=== PATIENT | male | born 1985 ===

== ENCOUNTER 2020-02-26 08:43 | Outpatient (REF) | payer OTHER, SELFPAY | END 2020-02-26 08:44 | disposition home or self-care (01) | LOC: HO.LAB 08:43 | PROVIDERS: Visit Provider Internal Medicine | DX: Z20.828 Contact with and (suspected) exposure to other viral communicable diseases (principal) | CPT/HCPCS: C9803; U0003 ==

== ENCOUNTER 2020-05-05 16:47 | Outpatient (REF) | payer OTHER, SELFPAY | END 2020-05-05 16:48 | disposition home or self-care (01) | LOC: HO.LAB 16:47 | PROVIDERS: Visit Provider Internal Medicine | DX: Z20.822 Contact with and (suspected) exposure to COVID-19 (principal) | CPT/HCPCS: 36415; C9803; U0003 ==

== ENCOUNTER 2023-01-01 13:19 | Emergency (ER) | payer MEDICAID, SELFPAY ==
--- NOTE | ~2023-01-01 | CT_ITS ---
EXAMINATION: CT ABDOMEN AND PELVIS WITHOUT CONTRAST CLINICAL INFORMATION: Left flank hematuria COMPARISON: None available. TECHNIQUE: Multidetector volumetric imaging was performed from the superior aspect of the liver through the pubic symphysis. Sagittal and coronal reformatted images were obtained on the technologist's workstation. This CT examination was performed using dose optimization techniques as appropriate, variously including the following: *Automated exposure control *Adjustment of mA and/or kV according to patient size (this includes techniques or standardized protocols for targeted exams where dose is matched to indication/reason for exam; i.e. extremities or head) *Use of iterative reconstruction technique DLP: 539 mGy-cm FINDINGS: LUNG BASES: There is scattered calcified granulomas in right lung base with the largest granuloma measuring 7 mm axial image 8/3. Heart size is normal. No pericardial effusion seen. Small right pericardial effusion is seen. LIVER, GALLBLADDER, AND BILIARY TREE: The liver is normal in size, shape, and attenuation. No focal hepatic lesion or biliary ductal dilatation is present. The gallbladder is unremarkable with no evidence of radiopaque gallstones, gallbladder wall thickening, or obvious pericholecystic inflammatory changes. PANCREAS: Unremarkable. SPLEEN: Unremarkable. ADRENAL GLANDS: Unremarkable. KIDNEYS AND URETERS: The kidneys are normal in size, shape, and attenuation. There is 7 mm radiopaque calculi in lower pole calyx right kidney and 4 mm calculi lower pole and several 2 mm radiopaque calculi mid pole left kidney without caliectasis. There is a left sided hydroureteronephrosis from an obstructive 4 mm radiopaque calculi left distal ureter. There is minimal proximal periureteral fat stranding. BLADDER: Unremarkable. GASTROINTESTINAL TRACT: Scattered stool and gas is seen throughout the colon without distention. The small bowel loops are normal caliber. Appendix is normal caliber. No inflammatory process, free air or free fluid. ABDOMINAL WALL: There is a small umbilical hernia containing fat. LYMPH NODES: Normal. VASCULAR: Unremarkable. PELVIC VISCERA: The prostate gland is mildly enlarged. Small shotty lymph nodes are seen in the left inguinal region. OSSEOUS STRUCTURES: No gross lytic or sclerotic process seen CT/CT abdomen pelvis wo IV con IMPRESSION: 4 mm obstructive left distal ureteral calculi with mild hydroureteronephrosis. Bilateral nephrolithiasis. Mild constipation. Calcified granulomas right lung base. Mild prostate enlargement. Fleischner guidelines were followed.
--- NOTE | 2023-01-01 13:36 | ED.ABDPAIN ---
HPI - Abdominal Pain General Chief Complaint: Urogenital-Male Stated Complaint: Blood in urine/L side back pain Time Seen by Provider: 01/01/23 16:38 Source: patient Mode of arrival: ambulatory Limitations: no limitations History of Present Illness HPI narrative: this is a 37-year-old male with no known medical history who presents to the ER with complaints of left flank pain and hematuria starting today. No vomiting, diarrhea, fever, chills, testicular pain, abdominal pain. no concern for STI. Related Data Previous Rx's Medication Instructions Recorded ciprofloxacin HCl 500 mg tablet 500 mg PO BID #14 tabs 01/01/23 ibuprofen 600 mg tablet 600 mg PO Q8H PRN pain #30 tabs 01/01/23 tamsulosin 0.4 mg capsule (Flomax) 0.4 mg PO DAILY #30 caps 01/01/23 Allergies Allergy/AdvReac Type Severity Reaction Status Date / Time No Known Allergies Allergy Verified 01/01/23 13:36 Review of Systems Review of Systems Yes all other systems are reviewed and are negative Constitutional: Reports no additional constitutional complaints, Denies body ache(s), Denies chills, Denies fever(s), Denies headache(s) and Denies weakness Eyes: Reports no additional eye complaints and Denies change in vision Reports system reviewed and no additional complaints, except as documented, Denies dizziness, Denies headache(s), Denies nasal congestion, Denies nasal discharge and Denies neck pain Cardiovascular: Reports no additional cardiovascular complaints, Denies chest pain, Denies leg edema and Denies dyspnea Respiratory: Reports no additional respiratory complaints, Denies cough and Denies dyspnea Gastrointestinal: Reports no additional gastrointestinal complaints, Denies abdominal pain, Denies diarrhea, Denies nausea and Denies vomiting Genitourinary: Reports hematuria, Denies dysuria, Reports flank pain, Denies testicular mass, Denies testicular pain, Denies urinary frequency, Denies urinary hesitancy, Denies urinary incontinence and Denies urinary urgency Musculoskeletal: Reports no additional musculoskeletal complaints, Reports back pain, Denies arthralgias, Denies joint swelling, Denies neck pain, Denies numbness and Denies tingling Skin/Breast: Reports system reviewed and no additional complaints, except as docu and Denies rash Reports system reviewed and no additional complaints, except as documented, Denies Abnormal speech present, Denies dizziness, Denies headache(s), Denies numbness, Denies tingling and Denies weakness [facility] Past Medical History Attestation statement: The following information was validated with the patient. Source: old records reviewed and nursing notes reviewed Social History Social History Advance Directives: No Advance Directives Information Provided: No Physical Exam ED Vital Signs: Vital Signs - 24 hr 01/01/23 13:37 01/01/23 16:52 Temperature 98 F 98.2 F Pulse Rate 73 48 L Respiratory Rate 19 16 Blood Pressure 129/71 141/70 H Pulse Oximetry 98 98 Oxygen Delivery Method Room Air Room Air BMI result Body Mass Index 29.2 Const General: cooperative, healthy appearing, comfortable and no acute distress Orientation/consciousness: patient oriented x3 Limitations: no limitations HENMT Head: Yes normal to inspection Ears: hearing grossly normal bilaterally General nose exam: Normal external nose present Face and sinus: Yes normal facial exam Mouth: Normal oral and palatal mucosa present Throat: Yes posterior oropharynx normal Eyes General: appearance normal, both eyes and all related structures Pupils: Equal, round and reactive pupils present Neck Neck: Yes normal visual inspection Chest Chest palpation & inspection: normal inspection of the chest Resp Effort & Inspection: normal respiratory effort Auscultation: clear to auscultation bilaterally Cardio Rate: regular rate Rhythm: regular rhythm Peripheral pulses: Peripheral pulses 2+ throughout GI Inspection: Yes normal to inspection Palpation (GI): Soft to palpation and nontender Auscultation: normal bowel sounds General: Yes CVA tenderness (left side) Back/Spine/Pelvis Back: CVA tenderness (left side) Thoracic/Lumbar Spine: thoracic and lumbar spine normal to inspection Skin General skin exam: no rashes or lesions noted Neuro General: patient oriented x3, no focal motor deficits and normal sensation to monofilament Cranial nerves: Yes Equal, round and reactive pupils present Cognition (Neuro): normal cognition Speech: No Abnormal speech present Gait exam (Neuro): Normal gait present Motor exam (neuro): 5/5 motor strength present throughout Extrem General: Yes normal to inspection Course Course Course Narrative: This is an RME: Additional HPI, ROS, PE not included below will be deferred to primary provider. Patient is a 37-year-old male presents emergency department with reports of review of a hematuria and left flank pain upon awakening this morning. He reports a history of kidney stones, but states that this feels different as previously he experienced scrotal pain with it only. Denies dysuria, fevers, chills, nausea, vomiting, diarrhea, constipation. Plan: Labs, urinalysis, CT AP Medical Decision Making Medical Decision Making [facility] Narrative: this is a 37-year-old male with no known medical history who presents to the ER with complaints of left flank pain and hematuria starting today. No vomiting, diarrhea, fever, chills, testicular pain, abdominal pain. no concern for STI. on exam patient has left CVA tenderness. No focal abdominal pain. Patient is quite comfortable resting in the bed. No vomiting, afebrile. Will review labs, UA and CT ordered from triage. Differential Diagnosis Differential Diagnoses: The differential diagnosis associated with the presentation includes Colic, pyelonephritis, UTI low concern for testicular torsion, epididymitis, STI Admission/Observation Consideration of admission/observation: Escalation of care including admission/observation considered No fever, leukocytosis, normal renal function, pain is well controlled with no vomiting. No need for admission for Urology consultation urgently. Lab Data [facility] Lab Attestation statement: I reviewed the patient's lab results. 01/01/23 15:33 01/01/23 15:33 Labs: Lab Results 01/01/23 01/01/23 Range/Units 15:32 15:33 WBC 7.4 (4.8-10.8) X10*3/uL RBC 4.95 (4.60-5.80) X10*6/uL Hgb 14.1 (14.0-18.0) g/dl Hct 42.3 (42.0-52.0) % MCV 85.5 (80.0-98.0) fL MCH 28.5 (27.0-33.0) pg MCHC 33.3 (31.0-36.0) g/dl RDW 13.0 (11.0-16.0) % Plt Count 226 (160-400) X10*3/uL MPV 10.2 (9.4-12.4) fL Immature Gran % (Auto) 0.1 (0.0-0.4) % Neut % (Auto) 51.9 (45-73) % Lymph % (Auto) 34.2 (20-40) % [place] % (Auto) 7.0 (2-11) % Eos % (Auto) 6.3 H (0-4) % Baso % (Auto) 0.5 (0-2) % Lymph # (Auto) 2.5 (1.2-4.9) X10*3/uL [place] # (Auto) 0.5 (0.1-1.2) X10*3/uL Eos # (Auto) 0.5 H (0.0-0.4) X10*3/uL Baso # (Auto) 0.0 (0.0-0.2) X10*3/uL Abs Immat Gran (auto) 0.01 (0.00-0.03) X10*3/uL Absolute Neuts (auto) 3.8 (2.0-8.3) x10*3/uL Absolute Nucleated RBC 0.000 (0.0-0.012) X10*3/uL Nucleated RBC % (auto) 0.0 (0.0-0.2) /100WBC Sodium 140 (135-145) mmol/L Potassium 4.5 (3.3-5.1) mmol/L Chloride 110 H (96-108) mmol/L Carbon Dioxide 25 (22-29) mmol/L Anion Gap 10 L (12-20) BUN 14 (9-16) mg/dL Creatinine 0.95 (0.5-1.4) mg/dL Estim Creat Clear Calc 117.9 Estimated GFR > 60 Random Glucose 96 (60-115) mg/dL Calcium 9.8 (8.4-10.2) mg/dL Total Bilirubin 0.4 (0.0-1.0) mg/dL AST 30 (5-37) U/L ALT 24 (0-40) U/L Alkaline Phosphatase 82 (39-117) U/L Total Protein 7.1 (6.5-8.0) g/dL Albumin 4.1 (3.5-5.0) g/dL Lipase 107 H (8-78) U/L Urine Color Dark Yellow Urine Appearance Cloudy Urine pH 5.5 (5.0-9.0) Ur Specific [place] 1.025 (1.005-1.025) Urine Protein 30 (1+) H (Neg-Trace) mg/dL Urine Glucose (UA) Negative (Negative) mg/dL Urine Ketones Negative (Negative) mg/dL Urine Blood Large (3+) H (Negative) Urine Nitrite Negative (Negative) Ur Leukocyte Esterase Small (1+) H (Negative) Urine RBC >20 H (0-2) /HPF Urine WBC 21-50 H (0-5) /HPF Ur Squamous Epith Cells 0-2 (0-2) /HPF Urine Bacteria None Seen (None Seen) Hyaline Casts 3-5 (0-2) /LPF Independent Interpretation I performed an independent interpretation of an: CT Scan Interpretation: I independently reviewed the CT scan agree with the radiology report Radiology Impression Discussion of test interpretation with radiology: I have reviewed the radiologist's reading. Radiologist Impression: John Lazaro??37??M??1985 ? Allergy/Adv: No Known Allergies Close Abdomen/Pelvis CT (Signed) Adiel Rosanal - 01/01/23 Launch?Image [place] [id number] CT Scan Report Signed Patient: John Lazaro MR#: [id number] : 1985 Acct:[id number] Age/Sex: 37 / M ADM Date: 01/01/23 Loc: HO.ED Attending Dr: Ordering Physician: Ivelisse Ureña CNP Date of Service: 01/01/23 Procedure(s): CT abdomen pelvis wo IV con Accession Number(s): [id number] cc: Ivelisse Ureña CNP; Physician,Unknown ~ EXAMINATION: CT ABDOMEN AND PELVIS WITHOUT CONTRAST CLINICAL INFORMATION: Left flank hematuria COMPARISON: None available. TECHNIQUE: Multidetector volumetric imaging was performed from the superior aspect of the liver through the pubic symphysis. Sagittal and coronal reformatted images were obtained on the technologist's workstation. This CT examination was performed using dose optimization techniques as appropriate, variously including the following: *Automated exposure control *Adjustment of mA and/or kV according to patient size (this includes techniques or standardized protocols for targeted exams where dose is matched to indication/reason for exam; i.e. extremities or head) *Use of iterative reconstruction technique DLP: 539 mGy-cm FINDINGS: LUNG BASES: There is scattered calcified granulomas in right lung base with the largest granuloma measuring 7 mm axial image 8/3. Heart size is normal. No pericardial effusion seen. Small right pericardial effusion is seen. LIVER, GALLBLADDER, AND BILIARY TREE: The liver is normal in size, shape, and attenuation. No focal hepatic lesion or biliary ductal dilatation is present. The gallbladder is unremarkable with no evidence of radiopaque gallstones, gallbladder wall thickening, or obvious pericholecystic inflammatory changes. PANCREAS: Unremarkable. SPLEEN: Unremarkable. ADRENAL GLANDS: Unremarkable. KIDNEYS AND URETERS: The kidneys are normal in size, shape, and attenuation. There is 7 mm radiopaque calculi in lower pole calyx right kidney and 4 mm calculi lower pole and several 2 mm radiopaque calculi mid pole left kidney without caliectasis. There is a left sided hydroureteronephrosis from an obstructive 4 mm radiopaque calculi left distal ureter. There is minimal proximal periureteral fat stranding. BLADDER: Unremarkable. GASTROINTESTINAL TRACT: Scattered stool and gas is seen throughout the colon without distention. The small bowel loops are normal caliber. Appendix is normal caliber. No inflammatory process, free air or free fluid. ABDOMINAL WALL: There is a small umbilical hernia containing fat. LYMPH NODES: Normal. VASCULAR: Unremarkable. PELVIC VISCERA: The prostate gland is mildly enlarged. Small shotty lymph nodes are seen in the left inguinal region. OSSEOUS STRUCTURES: No gross lytic or sclerotic process seen CT/CT abdomen pelvis wo IV con IMPRESSION: 4 mm obstructive left distal ureteral calculi with mild hydroureteronephrosis. Bilateral nephrolithiasis. Mild constipation. Calcified granulomas right lung base. Mild prostate enlargement. Fleischner guidelines were followed. Prescription Management I considered prescription management with: Pain Medication and Antibiotic Medications Administered Discontinued Medications Generic Name Dose Route Start Last Admin Trade Name Freq PRN Reason Stop Dose Admin Ketorolac Tromethamine 60 mg 01/01/23 16:52 01/01/23 17:07 Ketorolac Tromethamine 60 Mg/2 Ml Vial IM 01/01/23 16:53 60 mg ONCE ONE Administration Discharge Plan Discharge Clinical Impression: Renal colic Patient Disposition: Home, Self-Care Instructions: Renal Colic (ED) Additional Instructions: take the medications as prescribed follow-up with Urology return for worsening pain, fever, vomiting Prescriptions: New tamsulosin [Flomax] 0.4 mg capsule 0.4 mg PO DAILY Qty: 30 0RF ciprofloxacin HCl 500 mg tablet 500 mg PO BID Qty: 14 0RF ibuprofen 600 mg tablet 600 mg PO Q8H PRN (Reason: pain) Qty: 30 0RF Referrals: Riki Valentino MD [Physician] - 1 week Physician,Unknown J [Primary Care Provider] - 1 week Stand Alone Forms: Work/School Release
[2023-01-01 13:37] VITALS: BP 129/71; PULSE 73; RESP 19; TEMP 36.6; O2SAT 98; BMI 29.2
[2023-01-01 15:39] LABS: MANUAL DIFF FLAG NO
[2023-01-01 15:42] LABS: Basophils Percent Auto 0.5 % (0-2); Eosinophils Absolute Auto 0.5 X10*3/uL (0.0-0.4); Eosinophils Percent Auto 6.3 % (0-4); Hematocrit 42.3 % (42.0-52.0); Hemoglobin 14.1 g/dl (14.0-18.0); Imm Gran Abs Auto 0.01 X10*3/uL (0.00-0.03); Imm Gran Pct Auto 0.1 % (0.0-0.4); Lymphocytes Absolute Auto 2.5 X10*3/uL (1.2-4.9); Lymphocytes Percent Auto 34.2 % (20-40); Mean Corpuscular HGB Conc 33.3 g/dl (31.0-36.0); Mean Corpuscular Hemoglobin 28.5 pg (27.0-33.0); Mean Corpuscular Volume 85.5 fL (80.0-98.0); Mean Platelet Volume 10.2 fL (9.4-12.4); Monocytes Absolute Auto 0.5 X10*3/uL (0.1-1.2); Neutrophils Absolute Auto 3.8 x10*3/uL (2.0-8.3); Neutrophils Percent Auto 51.9 % (45-73); Platelet Count 226 X10*3/uL (160-400); Red Blood Count 4.95 X10*6/uL (4.60-5.80); White Blood Count 7.4 X10*3/uL (4.8-10.8)
[2023-01-01 15:44] LABS: Appearance Urine Cloudy; Color Urine Dark Yellow; Glucose Urine UA Negative (Negative); Leukocyte Esterase Urine Small (1+) (Negative); Nitrite Urine Negative (Negative); PH 5.5 (5.0-9.0); Specific Gravity - Urine 1.025 (1.005-1.025); UMIC TRIGGER UACC YES; Urine Blood Large (3+) (Negative); Urine Ketones Negative (Negative); Urine Protein 30 (1+) mg/dL (Neg-Trace)
[2023-01-01 15:46] LABS: Bacteria Urine None Seen (None Seen); RBC Urine >20 /HPF (0-2); Squamous Epithelial Cell Urine 0-2 /HPF (0-2); UACC Culture Trigger YES; WBC Urine 21-50 /HPF (0-5)
[2023-01-01 16:09] LABS: Alanine Aminotransferase 24 U/L (0-40); Albumin Level 4.1 g/dL (3.5-5.0); Alkaline Phosphatase 82 U/L (39-117); Anion Gap 10 (12-20); Aspartate Amino Transferase 30 U/L (5-37); Bilirubin Total 0.4 mg/dL (0.0-1.0); Blood Urea Nitrogen 14 mg/dL (9-16); Calcium 9.8 mg/dL (8.4-10.2); Carbon Dioxide 25 mmol/L (22-29); Chloride 110 mmol/L (96-108); Creatinine Clr Calc Pharmacy 117.9; Estimated Glomerular Filt Rate > 60; Glucose Random 96 mg/dL (60-115); Lipase 107 U/L (8-78); Potassium 4.5 mmol/L (3.3-5.1); Sodium 140 mmol/L (135-145); Total Protein 7.1 g/dL (6.5-8.0)
[2023-01-01 16:52] VITALS: BP 141/70; PULSE 48; RESP 16; TEMP 36.8; O2SAT 98
[2023-01-01] MEDS: Ketorolac Tromethamine 60 MG/2 ML VIAL IM (17:07)
== END 2023-01-01 17:22 | disposition home or self-care (01) ==
PROVIDERS: Nurse Practitioner Family; Emergency Provider Emergency Medicine Emergency Medical Services
DX: N23 Unspecified renal colic (principal); R31.9 Hematuria, unspecified; M54.50 Low back pain, unspecified; K59.00 Constipation, unspecified; Z79.899 Other long term (current) drug therapy
CPT/HCPCS: 36415; 74176; 80053; 81001; 83690; 85025; 87086; 96372; 99283; 99284; J1885